=== PATIENT | female | born 1945 | race Caucasian/White ===

== ENCOUNTER → 2019-04-04 | Outpatient (REF) | payer MEDICARE | LOC: M LAB REF 11:01 → EEVIPCON 11:01 | PROVIDERS: ATTEND Physician Assistant Medical | DX: N39.0 Urinary tract infection, site not specified (principal) ==

== ENCOUNTER → 2020-01-18 | Outpatient (REF) | payer MEDICARE ==
[2020-01-18 17:48] LABS: AMYLASE 70 U/L (25-115); LIPASE 185 U/L (73-393)
== END ==
LOC: M LABDRWAD 16:52
DX: R10.84 Generalized abdominal pain (principal)

== ENCOUNTER → 2020-08-08 | Outpatient (CLI) | payer MEDICARE ==
--- NOTE | 2020-08-08 15:29 | REP ---
INDICATION: SPINAL STENOSIS. COMPARISON: None. TECHNIQUE: There are three views. FINDINGS: There is surgical fusion of the lumbar spine spanning L3-L5 with pedicle screws and stabilization rods. There is surgical fusion of L5-S1 anteriorly with surgical screws and plate. There intervertebral disc prostheses at L3-4, L4-5 and L5-S1. Vertebral body heights and alignment are normal. There is disc space narrowing at L5-S1. There is mild disc space narrowing at L1-2 and L2-3. This suggests mild/moderate degenerative disc disease at these levels. There are abdominal right upper quadrant surgical clips. IMPRESSION: Postsurgical and degenerative changes as described. <Electronically signed by Glen Cummins > 08/08/20 [id number]
== END ==
LOC: M ADAMS 13:26
PROVIDERS: ATTEND Orthopaedic Surgery Orthopaedic Surgery of the Spine
DX: M48.07 Spinal stenosis, lumbosacral region (principal)

== ENCOUNTER 2023-03-01 12:00 | Emergency (ER) | payer MEDICARE, OTHER ==
[~2023-03-01] VITALS: Ht 165.1 cm; Wt 72.3 kg
[2023-03-01 12:55] LABS: BASO % 0.3 % (0.0-1.0); EOS % 0.2 % (0.0-3.0); HEMATOCRIT 38.5 % (36.0-47.0); HEMOGLOBIN 12.4 g/dl (12.0-15.5); LYMPH # 0.7 10^3/uL (1.5-5.0); LYMPH % 7.1 % (24.0-44.0); MEAN CORPUSCULAR HEMOGLOBIN 30.1 pg (27.0-33.0); MEAN CORPUSCULAR HGB CONC 32.2 g/dl (32.0-36.5); MEAN CORPUSCULAR VOLUME 93.4 fl (80.0-96.0); MONO # 0.8 10^3/uL (0.0-0.8); MONO % 8.7 % (2.0-8.0); PLATELET COUNT, AUTOMATED 167 10^3/uL (150-450); RED BLOOD COUNT 4.12 10^6/uL (4.00-5.40); WHITE BLOOD COUNT 9.7 10^3/uL (4.0-10.0)
[2023-03-01 13:14] LABS: LIPASE 40 U/L (12-53)
[2023-03-01 13:16] LABS: ALBUMIN 3.5 G/DL (3.2-5.2); ALKALINE PHOSPHATASE 89 U/L (46-116); ALT/SGPT 20 U/L (7.0-40); AST/SGOT < 8 U/L (<34); BILIRUBIN,DIRECT 0.2 MG/DL (<0.4); BILIRUBIN,TOTAL 0.8 MG/DL (0.3-1.2); BLOOD UREA NITROGEN 13 MG/DL (9-23); CALCIUM LEVEL 9.1 MG/DL (8.3-10.6); CARBON DIOXIDE LEVEL 30 MMOL/L (20-31); CHLORIDE LEVEL 101 MMOL/L (98-107); CREATININE FOR GFR 0.71 MG/DL (0.55-1.30); GLOMERULAR FILTRATION RATE > 60.0 (>39); GLUCOSE, FASTING 113 MG/DL (74-106); POTASSIUM SERUM 3.9 MMOL/L (3.5-5.1); SODIUM LEVEL 137 MMOL/L (136-145); TOTAL PROTEIN 6.6 G/DL (5.7-8.2)
[2023-03-01] MEDS ORDERED: BACT800T5 PO (16:58)
[2023-03-01] MEDS ORDERED: ONDA4TAB6 PO (16:58)
[2023-03-01] MEDS ORDERED: BACTRIM 160MG/800MG DS TAB PO ONE (17:00)
[2023-03-01] MEDS ORDERED: ONDANSETRON 4MG ORAL DISINTEGRATING TAB PO ONE (17:00)
[2023-03-01 17:07] VITALS: BP 153/73; TEMP 98; O2SAT 98
[2023-03-05] MEDS ORDERED: CEPH500C PO (08:34)
== END 2023-03-01 17:09 | disposition home or self-care (01) ==
LOC: M ED 12:00
DX: N39.0 Urinary tract infection, site not specified (principal); I10 Essential (primary) hypertension; K21.9 Gastro-esophageal reflux disease without esophagitis; Z87.19 Personal history of other diseases of the digestive system; Z88.8 Allergy status to other drugs, medicaments and biological substances

== ENCOUNTER → 2023-03-23 | Outpatient (REF) | payer MEDICARE ==
[~2023-03-23] MED LIST: BACT800T5 PO; CEPH500C PO; ONDA4TAB6 PO
[2023-03-23 19:13] LABS: APPEARANCE, URINE CLOUDY (CLEAR); BACTERIA, URINE AUTO 1+ (NEGATIVE); BILIRUBIN, URINE AUTO NEGATIVE (NEGATIVE); BLOOD, URINE BLOOD NEGATIVE (NEGATIVE); COLOR, URINE AMBER (YELLOW); GLUCOSE, URINE (UA) AUTO NEGATIVE (NEGATIVE); KETONE, URINE AUTO TRACE mg/dL (NEGATIVE); LEUKOCYTE ESTERASE, URINE AUTO 3+ (NEGATIVE); MUCUS, URINE LARGE (NEGATIVE); NITRITE, URINE AUTO NEGATIVE (NEGATIVE); PROTEIN, URINE AUTO 1+ mg/dL (NEGATIVE); RBC, URINE AUTO 19 /HPF (0-3); SPECIFIC GRAVITY URINE AUTO 1.027 (1.002-1.035); SQUAMOUS EPITHELIAL CELL UR AU 5 /HPF (0-6); UROBILINOGEN, URINE AUTO 0.2 mg/dL (0.0-2.0); WBC, URINE AUTO TNTC /HPF (0-3)
== END ==
LOC: M LAB REF 16:16
PROVIDERS: ATTEND Physician Assistant Medical
DX: N39.0 Urinary tract infection, site not specified (principal)